=== PATIENT | female | born 1930 | race Caucasian/White ===

== ENCOUNTER 2017-05-09 12:11 | Observation (INO) | payer MEDICARE ==
[~2017-05-09] VITALS: Ht 152.4 cm; Wt 61.5 kg
[2017-05-09] MEDS ORDERED: VIIBRYD20 MG PO (12:37)
[2017-05-09] MEDS ORDERED: ARICEPT10 MG PO (12:37)
[2017-05-09] MEDS ORDERED: SYNTHROID0.112 MG/T PO (12:38)
[2017-05-09] MEDS ORDERED: B COMPLEX & B121 TAB PO (12:38)
[2017-05-09] MEDS ORDERED: CALCIUM 600 PLU1 TAB PO (12:39)
[2017-05-09] MEDS ORDERED: FOSAMAX 70MG TA70 MG PO (12:39)
[2017-05-09] MEDS ORDERED: NEURONTIN300 MG/CAP PO (12:40)
[2017-05-09 13:20] LABS: BASO # 0.1 (0.0-0.2); BASO % 0.7 % (0.0-2.0); EOS # 0.1 (0.0-0.7); EOS % 0.9 % (0-4.0); GRAN # 4.1 (1.4-6.5); GRAN % 59.3 % (42.2-75.2); HEMOGLOBIN 12.3 g/dl (12.5-16.0); LYMPH # 2.2 (1.2-3.4); LYMPH % 30.8 % (20.0-51.0); MEAN CELL VOLUME 90 fl (80.0-100.0); MEAN CORPUSCULAR HEMOGLOBIN 29 pg (27.0-31.0); MEAN CORPUSCULAR HGB CONC 32 g/dl (33.0-37.0); MEAN PLATELET VOLUME 11.7 fl (7.4-10.4); MONO # 0.6 (0.1-0.6); PLATELET COUNT 234 K/mm3 (130-400); RED BLOOD COUNT 4.21 M/mm3 (4.10-5.30); REDCELL DISTRIBUTION WIDTH-CV 13.6 % (11.5-14.5)
[2017-05-09 13:24] LABS: PROTHROMBIN TIME 10.7 SECONDS (9.7-12.8)
[2017-05-09 13:27] LABS: ADJUSTED CALCIUM 9.8 mg/dL (8.4-10.2); ALANINE AMINOTRANSFERASE 18 U/L (9-52); ALBUMIN 4.3 gm/dL (3.5-5.0); ALKALINE PHOSPHATASE 64 U/L (50-136); ANION GAP 10 mmol/L (7-16); BILIRUBIN,TOTAL 0.8 mg/dL (0.0-1.0); BLOOD UREA NITROGEN 17 mg/dL (7-17); CARBON DIOXIDE 23 mmol/L (22-30); CHLORIDE 107 mmol/L (98-107); CREATININE, serum 0.91 mg/dL (0.52-1.25); GLUCOSE 97 mg/dL (74-106); POTASSIUM 4.5 mmol/L (3.4-5.0); SODIUM 140 mmol/L (137-145)
[2017-05-09 13:36] LABS: B-TYPE NATRIURETIC PEPTIDE 237 pg/mL (0-450)
[2017-05-09 13:47] LABS: TROPONIN-I < 0.012 ng/mL (0.000-0.034)
[2017-05-09 13:53] LABS: PH 6 (5-8); SQUAMOUS EPITHELIAL 0-2 /hpf; URINE APPEARANCE Clear; URINE BACTERIA None Seen /hpf; URINE BILIRUBIN Negative (NEGATIVE); URINE BLOOD Negative (NEGATIVE); URINE COLOR Yellow; URINE GLUCOSE Negative (NEGATIVE); URINE KETONE Negative (NEGATIVE); URINE RBC 0-2 /hpf; URINE UROBILINOGEN Negative (NEGATIVE); URINE WBC 0-2 /hpf
[2017-05-09 16:35] VITALS: BP 150/74; PULSE 58; TEMP 98.3
[2017-05-09 17:17] VITALS: BP 147/74; PULSE 56
[2017-05-09 17:19] VITALS: BP 151/74; PULSE 64
[2017-05-09 17:20] VITALS: BP 114/67; PULSE 100
[2017-05-09 20:12] VITALS: BP 137/67; PULSE 57; TEMP 98.7
[2017-05-10 01:00] VITALS: BP 123/75; PULSE 81; TEMP 97.8
[2017-05-10 04:54] VITALS: BP 118/76; PULSE 80
[2017-05-10 07:45] LABS: BASO % 0.7 % (0.0-2.0); EOS # 0.1 (0.0-0.7); EOS % 1.5 % (0-4.0); GRAN % 55.9 % (42.2-75.2); LYMPH # 1.8 (1.2-3.4); LYMPH % 32.8 % (20.0-51.0); MEAN CELL VOLUME 91 fl (80.0-100.0); MEAN CORPUSCULAR HGB CONC 32 g/dl (33.0-37.0); MEAN PLATELET VOLUME 11.7 fl (7.4-10.4); MONO # 0.5 (0.1-0.6); MONO % 8.7 % (1.7-9.3); PLATELET COUNT 212 K/mm3 (130-400); RED BLOOD COUNT 3.86 M/mm3 (4.10-5.30); REDCELL DISTRIBUTION WIDTH-CV 13.4 % (11.5-14.5); WHITE BLOOD COUNT 5.4 K/mm3 (4.8-10.8)
[2017-05-10 07:52] LABS: HEMOGLOBIN 11.3 g/dl (12.5-16.0); MEAN CORPUSCULAR HEMOGLOBIN 29 pg (27.0-31.0)
[2017-05-10 07:54] LABS: CREATININE, serum 0.82 mg/dL (0.52-1.25); POTASSIUM 4.1 mmol/L (3.4-5.0)
[2017-05-10 08:35] VITALS: BP 154/75; PULSE 80; TEMP 98.2
[2017-05-10 11:37] VITALS: BP 152/69; PULSE 64; TEMP 98.6
[2017-05-10 12:55] VITALS: BP 147/65; PULSE 67; TEMP 97
== END 2017-05-10 14:43 | disposition home or self-care (01) ==
LOC: COL.ER 12:11 → PEDS 14:02 → MEDICAL 15:09
PROVIDERS: Emergency Medicine; Physician Assistant
DX: I95.1 Orthostatic hypotension (principal); E03.9 Hypothyroidism, unspecified; F03.90 Unspecified dementia, unspecified severity, without behavioral disturbance, psychotic disturbance, mood disturbance, and anxiety; F32.9 Major depressive disorder, single episode, unspecified; I08.3 Combined rheumatic disorders of mitral, aortic and tricuspid valves; Z87.891 Personal history of nicotine dependence
CPT/HCPCS: G0378; G8978-GP; G8979-GP; G8987-GO; G8988-GO; J1650; J7030

== ENCOUNTER 2019-07-23 12:16 | Outpatient (CLI) | payer MEDICARE ==
[~2019-07-23] VITALS: Ht 152.4 cm; Wt 57.8 kg
[~2019-07-23 12:16] MED LIST: ARICEPT 5MG PO; B COMPLEX & B121 TAB PO; CALCIUM 600 PLU1 TAB PO; FOSAMAX 70MG TA70 MG PO; NEURONTIN300 MG/CAP PO; SYNTHROID0.112 MG/T PO; VIIBRYD20 MG PO
[2019-07-23 12:41] VITALS: BP 123/76; PULSE 79; TEMP 98
--- NOTE | 2019-07-23 13:25 | NUR ---
Pt ate pudding upon arrival with assistance and is eating lunch now with daughter's assistance.
[2019-07-23 13:50] VITALS: BP 108/76; PULSE 88
[2019-07-23 15:22] VITALS: BP 112/71; PULSE 71
[2019-07-23] MEDS ORDERED: CIPRO 250MG TA250 MG PO (20:49)
[2019-07-24] MEDS ORDERED: ASPIRIN E.C. 8181 MG PO (00:30)
== END 2019-07-23 16:42 | disposition home or self-care (01) ==
LOC: EUO 12:16
DX: E86.0 Dehydration (principal)
CPT/HCPCS: J7030

== ENCOUNTER 2019-07-23 20:04 | Inpatient (IN) | payer MEDICARE ==
[~2019-07-23] VITALS: Ht 162.6 cm; Wt 54.3 kg
[2019-07-23] MEDS ORDERED: CIPRO 250MG TA250 MG PO (20:49)
[2019-07-23 20:53] LABS: BASO % 0.3 % (0.0-2.0); EOS % 0.2 % (0-4.0); GRAN # 9.5 (1.4-6.5); GRAN % 84.8 % (42.2-75.2); HEMOGLOBIN 10.7 g/dl (12.5-16.0); LYMPH # 0.8 (1.2-3.4); LYMPH % 7.3 % (20.0-51.0); MEAN CELL VOLUME 90 fl (80.0-100.0); MEAN CORPUSCULAR HEMOGLOBIN 28 pg (27.0-31.0); MEAN CORPUSCULAR HGB CONC 32 g/dl (33.0-37.0); MONO # 0.8 (0.1-0.6); PLATELET COUNT 230 K/mm3 (130-400); RED BLOOD COUNT 3.77 M/mm3 (4.10-5.30); REDCELL DISTRIBUTION WIDTH-CV 14.5 % (11.5-14.5)
[2019-07-23 21:02] LABS: ALBUMIN 3.6 gm/dL (3.5-5.0); BILIRUBIN,TOTAL 0.7 mg/dL (0.0-1.0); CALCIUM 8.7 mg/dL (8.4-10.2); CREATININE, serum 0.91 (0.52-1.25); POTASSIUM 3.8 mmol/L (3.4-5.0); TOTAL PROTEIN 6.9 gm/dL (6.4-8.2)
[2019-07-23 21:07] LABS: PARTIAL THROMBOPLASTIN TIME 27.1 SECONDS (26.0-37.0)
[2019-07-23 21:10] LABS: INR 1.1 (0.8-3.0); PROTHROMBIN TIME 12.5 SECONDS (9.7-12.8)
[2019-07-23 21:19] LABS: TROPONIN-I 0.182 ng/mL (0.000-0.035)
[2019-07-24] VITALS (174 sets, daily range): BP systolic 70–111; BP diastolic 43–78; PULSE 87–109; TEMP 97.8–98.5; O2SAT 81–99
[2019-07-24] MEDS ORDERED: ASPIRIN E.C. 8181 MG PO (00:30)
--- NOTE | 2019-07-24 01:14 | NUR ---
Patient arrived to medical floor from ER at approximately 2300. Daughter and granddaughter with patient. Assessment complete. Family assisted with patient's history. Paperwork from [place] received, and updated medication list. Patient resting in bed with eyes closed. Call light is within reach. High fall risk precautions in place.
--- NOTE | 2019-07-24 04:24 | NUR ---
At approximately 0335, telemetry called and stated that patient's HR was in the 160s. Checked on PT. Called RT for stat EKG. Alert and oriented to self only. Denies pain and discomfort. Patient remained in what looked like SVT for approximately 3 minutes. EKG results: sinus tach, HR 101. Notified Malena. Troponin came back elevated 0.470. Order for STAT CT chest. Taken down to radiology at 0400. Patient with increased confusion and agitation since being woken up. Aggitated with staff. Back to room at 0420. High fall risk precautions in place. Awaiting for STAT labs to be drawn, called and notified lab. Patient denies having to urinate at this time. Call light is within reach.
[2019-07-24 05:50] LABS: COLLECTION METHOD CATHETER
[2019-07-24 05:57] LABS: MUCOUS Present /lpf; PH 5 (5-8); URINE APPEARANCE Hazy; URINE BACTERIA Rare /hpf; URINE BILIRUBIN Negative (NEGATIVE); URINE BLOOD 1+ (NEGATIVE); URINE COLOR Yellow; URINE GLUCOSE Negative (NEGATIVE); URINE KETONE Negative (NEGATIVE); URINE LEUKOCYTE ESTERASE 3+ (NEGATIVE); URINE NITRATE Negative (NEGATIVE); URINE PROTEIN(semi-quant) Negative (NEGATIVE); URINE UROBILINOGEN Negative (NEGATIVE); URINE WBC >50 /hpf
[2019-07-24 05:58] LABS: HEMOGLOBIN 10.7 g/dl (12.5-16.0); MEAN CELL VOLUME 90 fl (80.0-100.0); MEAN CORPUSCULAR HEMOGLOBIN 28 pg (27.0-31.0); MEAN CORPUSCULAR HGB CONC 32 g/dl (33.0-37.0); MEAN PLATELET VOLUME 11.1 fl (7.4-10.4); PLATELET COUNT 249 K/mm3 (130-400); RED BLOOD COUNT 3.78 M/mm3 (4.10-5.30); REDCELL DISTRIBUTION WIDTH-CV 14.6 % (11.5-14.5)
[2019-07-24 06:16] LABS: C-REACTIVE PROTEIN 1.6 mg/dL (0.0-0.9); CALCIUM 8.9 mg/dL (8.4-10.2); CREATININE, serum 1.01 (0.52-1.25); PHOSPHOROUS 3.5 mg/dL (2.5-4.5); POTASSIUM 3.9 mmol/L (3.4-5.0)
[2019-07-24 06:43] LABS: THYROID STIMULATING HORMONE 8.51 uIU/mL (0.465-4.680)
--- NOTE | 2019-07-24 07:16 | NUR ---
Patient given IV ABXs after blood cultures were drawn. Patient is currently pleasant and cooperative. Voices no questions, needs, or concerns. High fall risk precautions remain in place. Attempted to call pulmonology consult, no answer. Called cardiology consult to Dr. Prado. Voices no questions, needs, or concerns at this time. Call light is within reach. Report given to day shift nurse.
--- NOTE | 2019-07-24 09:42 | NUR ---
Inclined Railway Operator attended clinical rounds with team. Patient is currently on oxygen although she does use oxygen at home. SW to continue to follow.
--- NOTE | 2019-07-24 10:15 | NUR ---
Initial visit; Family thanked Electric Motor Repairing Supervisor for looking in on Deandre who is experiencing some dementia. Electric Motor Repairing Supervisor visited with Deandre and offered prayer and God's blessings.
--- NOTE | 2019-07-24 11:13 | NUR ---
1055: INTERVENTIONAL RADIOLOGY READY FOR THORACENTISIS. pATIENT C/O OF INCREASED DIZZINESS AND BEING VERY LIGHTHEADED. PALE. COMPLAINING OF BEING HOT. SKIN WARM AND DRY. NO C/O CHEST PAIN OR PRESSURE. INCREASED WORK OF BREATHING WITH USE OF ACCESSORY MUSCLES TO BREATHE. RESPIRATORY RATE 24. fvs OBTAINED. SEE FLOW SHEET FOR HYPOTENSION. DR. PLUNKETT NOTIFIED. ORDERS RECEIVED FOR 500ML FLUID BOLUS OVER ONE HOUR NOW. FAMILY AND PATIENT UPDATE ON PLAN OF CARE. NO QUESTIONS OR CONCERNS. AGREE WITH PLAN OF CARE AT THIS TIME.
--- NOTE | 2019-07-24 12:00 | NUR ---
500ML NS BOLUS COMPLETE AT THIS TIME. SEE FLOWSHEET FOR DOCUMENTED BPS. NO C/O DIZZINESS OR BEING LIGHT HEADED. DR. PLUNKETT AWARE OF BPS. PATIENT TO TRANSFER TO ICU WHEN ROOM AVAILABLE. FAMILY AWARE AND AGRRES WITH PLAN OF CARE. ORDER RECEIVED TO PLACE BANEGAS CATHETER D/T HYPOTENSION AND PATIENT UNABLE TO VOID ON BED COLE. 16FR BANEGAS PLACED PER HOSPITAL POLICY IN STERILE FASHION. PATIENT TOLERATED PROCEDURE WELL.
--- NOTE | 2019-07-24 15:40 | NUR ---
Dr. Prado rounds on patient at this time. No new orders recieved.
--- NOTE | 2019-07-24 15:44 | NUR ---
Patient arrives to ICU 5 via bed and is tranferred to ICU bed and monitors. Vitals and assessment as charted. Care assumed at this time.
--- NOTE | 2019-07-24 16:21 | NUR ---
1530: PATIENT TRANSFERRED TO ICU ROOM 5. PATIENT REPORT GIVEN TO CARLITO KILGORE. FAMILY I ATTENDANCE AT TIME OF TRANSFER. ALL PERSONAL BELONGINGS SENT WITH FAMILY AND PATIENT.
--- NOTE | 2019-07-24 16:58 | NUR ---
Animal Rides Manager met with patient and patient's daughter, Brenda (ph#[phone]) to discuss discharge planning. Patient lives at [facility] and has been there for about 5 years. Patient has dementia and had difficulty answering questions. Brenda provided intake information to SW. Patient sees Dr. Lopez for primary care and has her medications set up and administered by [facility]. Patient has a walker but refuses to use it. Patient does not have Advance Directives in EMR. Brenda to bring copy tomorrow. SW to continue to follow.
--- NOTE | 2019-07-24 18:05 | NUR ---
Dr. Prado called again to discuss patient self limiting episodes of SVT. provides TORB for digoxin as entered.
[2019-07-25] VITALS (778 sets, daily range): BP systolic 70–122; BP diastolic 29–86; PULSE 65–95; TEMP 97.8–98.7; O2SAT 84–100
--- NOTE | 2019-07-25 01:21 | NUR ---
LEVOPHED STARTED ORDERED. PT'S BP AT 80/61 MMHG.
--- NOTE | 2019-07-25 04:53 | NUR ---
PT GETTING AGITATED AND COMBATIVE WITH STAFF WHEN TRYING TO GIVE MEDICATIONS AND X-RAY. PT YELLING "GET OUT! I DON'T WANT IT!" AND ALSO TRYING TO PULL LINES. WILL HOLD XRAY AND MORNING MEDS FOR NOW AND RE-TRY AGAIN ONCE PT IS CALM AND COOPERATIVE.
--- NOTE | 2019-07-25 05:11 | NUR ---
PT ONLY HAD 200 ML OF URINE FOR THIS SHIFT, E CARE NOTIDIED AND UPDATED WELL REGARDING PT'S BEHAVIOR. AWAITING FOR ORDERS/CALL BACK.
--- NOTE | 2019-07-25 05:26 | NUR ---
PT REFUSED EKG. SOON RT CAME IN ROOM, PT YELLED "OUT!"
--- NOTE | 2019-07-25 07:09 | NUR ---
PT IS REFUSING ALL TREATMENT THEREFORE NO VBG OR EKG HAS BEEN DONE. DAY SHIFT RT HAS BEEN NOTIFIED.
--- NOTE | 2019-07-25 07:20 | NUR ---
Unable to complete PICC line assessment - pt refusing.
--- NOTE | 2019-07-25 13:24 | NUR ---
Truck Despatcher attended clinical rounds with the team. SW to continue to follow to ensure safe discharge.
--- NOTE | 2019-07-25 15:50 | NUR ---
MD Whitley present in room discussing Thoracentesis - 2 daughters, 1 son and 1 granddaughter present - all in agreement - consent given and signed. 1600 TimeOut performed by myself, MD Whitley and Mralena Garcia present, all in agreement. Automated VS set to q5min. Post Procedure: pt tolerated procedure well, bandaid placed on puncuture site (right side). HOB to 30degrees, pt resting comfortably on left side, call light in reach, family back in room. No concerns at this time, VS remain stable
[2019-07-25 16:45] LABS: PLEURAL FLUID RBC 1000 /mm3 (0-0); PLEURAL FLUID WBC 729 /mm3
--- NOTE | 2019-07-25 17:00 | NUR ---
MD Marisa notified elevated Critical Troponin - MD Johan called - unable to leave voice message
[2019-07-25 17:07] LABS: BASO % 0.4 % (0.0-2.0); EOS # 0.1 (0.0-0.7); EOS % 1.3 % (0-4.0); HEMOGLOBIN 10.7 g/dl (12.5-16.0); LYMPH # 1.7 (1.2-3.4); LYMPH % 17.5 % (20.0-51.0); MEAN CELL VOLUME 89 fl (80.0-100.0); MEAN CORPUSCULAR HEMOGLOBIN 28 pg (27.0-31.0); MEAN CORPUSCULAR HGB CONC 32 g/dl (33.0-37.0); MEAN PLATELET VOLUME 10.9 fl (7.4-10.4); MONO # 0.9 (0.1-0.6); MONO % 9.4 % (1.7-9.3); PLATELET COUNT 227 K/mm3 (130-400); RED BLOOD COUNT 3.77 M/mm3 (4.10-5.30); REDCELL DISTRIBUTION WIDTH-CV 14.3 % (11.5-14.5)
[2019-07-25 17:09] LABS: HEMATOCRIT 33.6 % (37.0-47.0)
[2019-07-25 17:17] LABS: CREATININE, serum 0.87 (0.52-1.25); POTASSIUM 3.6 mmol/L (3.4-5.0)
[2019-07-25 17:18] LABS: CHOLESTEROL RISK RATIO 7.1
[2019-07-25 17:31] LABS: TROPONIN-I 0.532 ng/mL (0.000-0.035)
[2019-07-25 18:02] LABS: GLUCOSE,PLEURAL FLUID 118 mg/dL; TOTAL PROTEIN,PLEURAL FLUID 2.3 gm/dL
[2019-07-25 18:30] LABS: PLEURAL FLUID APPEARANCE CLOUDY; PLEURAL FLUID COLOR YELLOW
--- NOTE | 2019-07-25 19:07 | NUR ---
MD Johan called to notify of Troponin Level, no answer and unable to leave voice message
[2019-07-26] VITALS (883 sets, daily range): BP systolic 76–106; BP diastolic 54–75; PULSE 70–83; TEMP 98.4–98.7; O2SAT 79–100
--- NOTE | 2019-07-26 05:05 | NUR ---
PT ONLY HAD 150 OF URINE OUT, E CARE NOTIFIED. AWAITING FOR ORDERS/CALL BACK.
--- NOTE | 2019-07-26 05:35 | NUR ---
PT REFUSING EKG. PT VERBALLY AGGRESIVE AGAIN JUST LIKE YESTERDAY IN THE MORNING.
--- NOTE | 2019-07-26 07:30 | NUR ---
Report received from Claire KILGORE and care resumed.
[2019-07-26 08:54] LABS: BASO # 0.1 (0.0-0.2); BASO % 0.5 % (0.0-2.0); EOS # 0.2 (0.0-0.7); EOS % 1.5 % (0-4.0); GRAN # 8.2 (1.4-6.5); GRAN % 77.9 % (42.2-75.2); HEMOGLOBIN 10.7 g/dl (12.5-16.0); LYMPH # 1.3 (1.2-3.4); LYMPH % 12.4 % (20.0-51.0); MEAN CELL VOLUME 90 fl (80.0-100.0); MEAN CORPUSCULAR HEMOGLOBIN 28 pg (27.0-31.0); MEAN CORPUSCULAR HGB CONC 31 g/dl (33.0-37.0); MEAN PLATELET VOLUME 10.8 fl (7.4-10.4); MONO # 0.8 (0.1-0.6); MONO % 7.3 % (1.7-9.3); PLATELET COUNT 232 K/mm3 (130-400); RED BLOOD COUNT 3.82 M/mm3 (4.10-5.30)
[2019-07-26 09:02] LABS: HEMATOCRIT 34.2 % (37.0-47.0)
[2019-07-26 09:18] LABS: ALBUMIN 3.4 gm/dL (3.5-5.0); BILIRUBIN,TOTAL 0.7 mg/dL (0.0-1.0); CALCIUM 8.9 mg/dL (8.4-10.2); CREATININE, serum 0.77 (0.52-1.25); POTASSIUM 4.1 mmol/L (3.4-5.0); TOTAL PROTEIN 6.8 gm/dL (6.4-8.2)
--- NOTE | 2019-07-26 09:54 | NUR ---
Dr Barrett in to see pt at this time.
--- NOTE | 2019-07-26 10:21 | NUR ---
EKG RESULTS REPORTED AND SHOWN TO DR BEATTY, CARDIOLOGY OPERATIONS RESEARCH ENGINEER
--- NOTE | 2019-07-26 13:09 | NUR ---
Dr Cunningham in to see pt at this time.
--- NOTE | 2019-07-26 19:04 | NUR ---
Report given to Bandar KILGORE and care resumed.
[2019-07-27] VITALS (1050 sets, daily range): BP systolic 83–103; BP diastolic 61–74; PULSE 65–88; TEMP 97.8–98.5; O2SAT 73–100
--- NOTE | 2019-07-27 07:35 | NUR ---
Report received from Bandar KILGORE and care resumed.
[2019-07-27 08:21] LABS: BASO # 0.1 (0.0-0.2); BASO % 0.4 % (0.0-2.0); EOS # 0.1 (0.0-0.7); EOS % 0.7 % (0-4.0); GRAN # 9.9 (1.4-6.5); HEMOGLOBIN 11.8 g/dl (12.5-16.0); LYMPH # 1.1 (1.2-3.4); MEAN CELL VOLUME 88 fl (80.0-100.0); MEAN CORPUSCULAR HEMOGLOBIN 28 pg (27.0-31.0); MEAN CORPUSCULAR HGB CONC 32 g/dl (33.0-37.0); MEAN PLATELET VOLUME 10.8 fl (7.4-10.4); MONO # 0.9 (0.1-0.6); MONO % 7.5 % (1.7-9.3); PLATELET COUNT 259 K/mm3 (130-400); RED BLOOD COUNT 4.15 M/mm3 (4.10-5.30); REDCELL DISTRIBUTION WIDTH-CV 13.9 % (11.5-14.5)
[2019-07-27 08:26] LABS: HEMATOCRIT 36.7 % (37.0-47.0)
[2019-07-27 08:27] LABS: ALBUMIN 3.6 gm/dL (3.5-5.0); BILIRUBIN,TOTAL 0.7 mg/dL (0.0-1.0); CREATININE, serum 0.8 (0.52-1.25); TOTAL PROTEIN 7.1 gm/dL (6.4-8.2)
--- NOTE | 2019-07-27 10:16 | NUR ---
Dr Garsia in to see pt and Dr Mariano. Pt heart rate elevated and EKG obtained. Showing a fib. Dr Mariano aware and new orders received. Will continue to follow.
--- NOTE | 2019-07-27 13:30 | NUR ---
Dr Cunningham in to see pt at this time.
--- NOTE | 2019-07-27 20:00 | NUR ---
PT assessed and respositioned, reoriented to location and date. PT states frustration with forgetting things and for being "so much trouble to you gals." Reminded of need for catheter as PT has been forgetting and pulling on it occasionally, offered mittens to keep her from pulling on it and patient agreed to them. Will continue to reorient and monitor.
[2019-07-28] VITALS (342 sets, daily range): BP systolic 86–96; BP diastolic 23–73; PULSE 66–87; TEMP 97.6–98.7; O2SAT 66–100
[2019-07-28 06:09] LABS: BASO % 0.3 % (0.0-2.0); EOS # 0.2 (0.0-0.7); EOS % 1.4 % (0-4.0); GRAN # 8.3 (1.4-6.5); GRAN % 74.4 % (42.2-75.2); HEMOGLOBIN 11.9 g/dl (12.5-16.0); LYMPH # 1.5 (1.2-3.4); LYMPH % 13.8 % (20.0-51.0); MEAN CELL VOLUME 87 fl (80.0-100.0); MEAN CORPUSCULAR HEMOGLOBIN 28 pg (27.0-31.0); MEAN CORPUSCULAR HGB CONC 33 g/dl (33.0-37.0); MONO # 1.1 (0.1-0.6); MONO % 9.6 % (1.7-9.3); PLATELET COUNT 278 K/mm3 (130-400); RED BLOOD COUNT 4.19 M/mm3 (4.10-5.30); REDCELL DISTRIBUTION WIDTH-CV 13.8 % (11.5-14.5)
[2019-07-28 06:29] LABS: CALCIUM 9.2 mg/dL (8.4-10.2); CREATININE, serum 0.85 (0.52-1.25); POTASSIUM 3.6 mmol/L (3.4-5.0)
[2019-07-28 06:42] LABS: HEMATOCRIT 36.6 % (37.0-47.0)
--- NOTE | 2019-07-28 07:15 | NUR ---
Report given to MAGUI Holman.
--- NOTE | 2019-07-28 09:00 | NUR ---
PT HAS BECOME EXTREMELY AGITATED AND THINKS SHE IS AT THE DENTIST OFFICE AND IS TRYING TO CLIMB OUT OF BED. PT PULLING AT PICC LINE AND BANEGAS. TRIED TO REORIENT PAITENT BUT SHE IS BECOMING INCREASINGLY AGITATED. DR GIBBONS CALLED TO ASK ABOUT MEDICATION FOR AGITATION.
--- NOTE | 2019-07-28 09:00 | NUR ---
ATTEMPTED TO WEAN LEVO GTT DOWN. PT'S BP DECREASED TO SBP IN 70S. LEVO RESUMED AT 0.10MCG/KG/MIN.
--- NOTE | 2019-07-28 14:15 | NUR ---
DR GIBBONS DISCUSSED PLAN OF CARE WITH FAMILY. FAMILY HAS COME TO CONSENSUS TO MAKE PATIENT COMFORT MEASURES ONLY, INITIATING AT THIS TIME. LEVOPHED AND AMIO DISCONTINUED.
--- NOTE | 2019-07-28 14:38 | NUR ---
BP AFTER DISCONTINUING LEVOPHED IS NOW 68/45, HR 69, RESP 20
--- NOTE | 2019-07-28 15:35 | NUR ---
PT RESTING COMFORTABLY WITH FAMILY AT BEDSIDE. CURRENT VS: BP 79/55, PULSE 62,RESP 21, O2 SAT 90% ROOM AIR.
--- NOTE | 2019-07-28 16:17 | NUR ---
PT CONTINUES TO REST COMFORTABLY. BP CURRENTLY 69/50
--- NOTE | 2019-07-28 16:39 | NUR ---
BP 67/48
--- NOTE | 2019-07-28 17:54 | NUR ---
PT STILL RESTING COMFORTABLY. CURRENT VS: PULSE 61, BP 74/52, RESP 16, 97% ROOM AIR.
--- NOTE | 2019-07-28 18:28 | NUR ---
FAMILY DENIES ANY NEEDS AT THIS TIME. PATIENT RESTING COMFORTABLY. BP 78/57
--- NOTE | 2019-07-28 19:15 | NUR ---
Discussed POC for the evening with family and MAGUI Holman. Family aware that there is pain and anxiety medication ordered if it is needed for the patient. Notified family that we may move the patient to the medical floor this evening if an ICU bed is needed and the patient prognosis is stable/will hold on throughout the evening. PT is resting in bed, sleeping. BP 70/56, HR 81, RR 22. Will continue to assess for pain in the patient and the familiy's needs.
--- NOTE | 2019-07-29 00:10 | NUR ---
PT asleep in bed, family member asleep in recliner. BP 79/56, HR 66, RR 20.
--- NOTE | 2019-07-29 08:01 | NUR ---
PT SITTING UP IN BED, ALERT, AND CONVERSIVE. PT CONTINUES TO BE CONFUSED D/T ADVANCED DEMENTIA. PT ABLE TO SPEAK WITH FAMILY AT BEDSIDE. CURRENT VS: BP 71/58, PULSE 82, RESP 17
--- NOTE | 2019-07-29 08:57 | NUR ---
REPORT CALLED TO JEFFERSON KILGORE ON MEDICAL FLOOR.
--- NOTE | 2019-07-29 09:16 | NUR ---
PT TRANSFERRED TO MEDICAL FLOOR BED AND TRANSPORTED BY CENTRAL STERILE SUPPLY TECHNICIAN TO MEDICAL ROOM 308. PT'S DAUGHTER TRANSFERRED BELONGINGS TO MEDICAL ROOM 308.
--- NOTE | 2019-07-29 10:00 | NUR ---
PT ADMITTED TO FLOOR AT THIS TIME. RESTING QUITELY WITH EYES CLOSED.
--- NOTE | 2019-07-29 15:45 | NUR ---
PICC intact right upper arm. With sterile technique right upper arm PICC dressing change done with insertion site cleansed with ChloraPrep 1, chlorhexidine impregnated disc applied, skin prep, StatLock, and Tegaderm applied. No signs or symptoms of IV complications noted. No concerns voiced. Arm wrapped with Renny to protect catheter.
--- NOTE | 2019-07-29 16:22 | NUR ---
The patient is on comfort measures. PAO met with the patient's daughter's, Tiffany, to discuss hospice options. The patient's daughters would prefer to keep the patient here until she passes. They would also like to have the PICC removed. PAO notified the patient's RN and the hospitalist of this. PAO provided support and ordered a comfort care basket. SW to continue to follow.
--- NOTE | 2019-07-29 17:06 | NUR ---
PT HAS SEVERAL FAMILY MEMBERS IN ROOM VISITING. INQURING ABOUT PT PROGNOSIS AND LIFE EXPECTANCY. THIS NURSE TALKED TO FAMILY ABOUT HOW THERES NO KNOWING WHEN SHE COULD PASS AWAY THAT THERE IS NO STRAIGHT FORWARD ANSWER. FAMILY WENT ON DISCUSSING WHAT TO DO PAST THE HOSPITAL IF PT DOESNT PASS AWAY WHILE SHE IS HERE.
--- NOTE | 2019-07-29 20:44 | NUR ---
Resting in bed with family at bedside. Patient alert and orientated. Assessment complete. Base bilaterally dimished with left lower lobe crackles. Upper lobes clear. Heart murmur heard. Bowels active x4. Pulse strong throughout. No edema noted. PICC to right upper. Patient denies pain. States " I am comfortable just tired." Family and patient denie needs. Call light in reach.
--- NOTE | 2019-07-29 23:59 | NUR ---
Resting in bed comfortable. Educated family to call if patient becomes restless or has discomfort. Denies needs at this time. Call light in reach.
--- NOTE | 2019-07-30 04:41 | NUR ---
Resting in bed with family at bedside. Patient appears comfortable, currently sleeping. Call light in reach.
--- NOTE | 2019-07-30 06:04 | NUR ---
Patient had uneventful night. Rested comfortably. Family remained at bedside throughout night. Denies needs this AM. Call light in reach.
--- NOTE | 2019-07-30 07:07 | NUR ---
Report given to MAGUI Roman
--- NOTE | 2019-07-30 11:36 | NUR ---
Hospitalist informed SW that the patient and patient's family were agreeable to transitioning to the [facility]. PAO faxed referral and contacted [facility], left message with their answering service. visitor services technician will continue to follow.
--- NOTE | 2019-07-30 19:10 | NUR ---
Patient reports nausea. Obtained order from Dr. Cunningham for zofran 4mg IV Q6H PRN.
--- NOTE | 2019-07-30 19:17 | NUR ---
PT HAD UNEVENTFUL DAY. HAS BEEN SITTING WITH FAMILY MOST OF DAY VISITING. HAS HAD C/O SOME DIZZINESS THIS EVENING. C/O BEING HUNGERY. GAVE PT A ENSURE WITH SOME ICECREAM INTO A MILK SHAKE, VOICED THAT IT WAS VERY GOOD AND WAS DRANK MOST IF IT THIS EVENING. FAMILY REPORTED THAT THEY WILL BE CHANTAL THIS EVENING. THIS NURSE TURNED ON BED ALARM.
--- NOTE | 2019-07-30 19:40 | NUR ---
Resting in bed. Reported dizziness/n[place]asea. Provided with PRN zofran to PICC in right uper arm. PICC flushed without complications. Assessment complete. Bases bilaterally crackles otherwise clear. Heart murmur heard on auscultation. Pulses strong throughout. No edema noted at this time. Patient appears pale to color. Walker to dependent drainage without kinks or loops. Urine yellow and cloudy. Denies pain at this time. Denies other needs. Call light in reach.
--- NOTE | 2019-07-30 21:16 | NUR ---
Resting comfortably in bed at this time.
--- NOTE | 2019-07-30 21:40 | NUR ---
Resting in bed comfortably at this time
--- NOTE | 2019-07-30 22:08 | NUR ---
Resting in bed. Patient reports confusion. States does not know place or what is happening. Reorientated patient. Patient states she would like to rest and to please turn lights off. Denies other needs. Will monitor. Bed alarm in place.
--- NOTE | 2019-07-31 00:19 | NUR ---
Resting in bed comfortably at this time
--- NOTE | 2019-07-31 03:32 | NUR ---
Resting in bed comfortably. Denies needs. Call light in reach.
--- NOTE | 2019-07-31 06:26 | NUR ---
Patient had uneventful night. Resting in bed this AM. Call light in reach.
--- NOTE | 2019-07-31 07:30 | NUR ---
Report given to MAGUI Barron
--- NOTE | 2019-07-31 09:38 | NUR ---
Олег, at [facility], reports that they would not be able to accept the patient today; but tentatively tomorrow. Олег requested the patient's med list, DNR order, and DPOA-HC. PAO faxed that information to Олег. PAO updated the clinical team and will update the patient's family. SW to continue to follow.
--- NOTE | 2019-07-31 10:59 | NUR ---
Олег, at [facility], reports that they are awaiting to hear back from the patient's PCP of whether he will follow. Олег reports that once they hear back from him, they may tentatively be able to accept the patient tomorrow around 1330. SW to update the family and will continue to follow.
[2019-07-31] MEDS ORDERED: ROXANOL 20MG20 MG/ML SL (14:40)
[2019-07-31] MEDS ORDERED: ATIVAN 1MG T1 MG/TAB PO (14:41)
[2019-07-31] MEDS ORDERED: ZOFRAN ODT4 MG PO (14:43)
--- NOTE | 2019-07-31 14:45 | NUR ---
Олег, at [facility], contacted PAO back to inform that they would actually be able to accept the patient today. PAO notified the clinical team and informed the patient's daughter, Brenda. Brenda is in agreeance with the patient discharging today. PAO presented and explained the IM form to Brenda. Brenda verbalized understanding, signed, and she was provided a copy. The patient is to discharge today, 07/31, to the [facility]. Transportation was arranged for 1530, via [facility]. PAO informed the patient's daughter (Brenda), her RN, and [facility]. They were all in agreeance to the time. PAO to fax the patient's scripts to the families preferred pharmacy, [facility]. No additional needs at this time.
--- NOTE | 2019-07-31 16:57 | NUR ---
1500: PICC LINE REMOVED. NO COMPLICATIONS. STERILE DRESSING APPLIED. 1555: PATIENT DC TO [facility] VIA EMS. DC PACKET SET WITH EMS. REPORT GIVEN TO LEIF KILGORE. ENCOURAGED TO CALL WITH ANY QUESTIONS OR CONCERNS.
== END 2019-07-31 15:55 | disposition hospice, home (50) | DRG 280 ==
LOC: COL.ER 20:04 → MEDICAL 21:57 → ICU 21:57 → MEDICAL 23:59 → ICU 07-24 15:27 → MEDICAL 07-29 09:26
PROVIDERS: Family Medicine; Internal Medicine Pulmonary Disease; Nurse Practitioner Family; Physician Assistant; Student in an Organized Health Care Education/Training Program
PROC: 02HV33Z Insertion of Infusion Device into Superior Vena Cava, Percutaneous Approach (ICD-10-PCS; principal; 2019-07-23)
PROC: 0W993ZZ Drainage of Right Pleural Cavity, Percutaneous Approach (ICD-10-PCS; 2019-07-25)
DX: I50.43 Acute on chronic combined systolic (congestive) and diastolic (congestive) heart failure (principal); J96.01 Acute respiratory failure with hypoxia; I21.4 Non-ST elevation (NSTEMI) myocardial infarction; N39.0 Urinary tract infection, site not specified; I47.1 Supraventricular tachycardia; J91.8 Pleural effusion in other conditions classified elsewhere; R18.8 Other ascites; M48.54XA Collapsed vertebra, not elsewhere classified, thoracic region, initial encounter for fracture; J98.11 Atelectasis; E87.70 Fluid overload, unspecified; K44.9 Diaphragmatic hernia without obstruction or gangrene; F03.90 Unspecified dementia, unspecified severity, without behavioral disturbance, psychotic disturbance, mood disturbance, and anxiety; I27.20 Pulmonary hypertension, unspecified; E03.9 Hypothyroidism, unspecified; M81.0 Age-related osteoporosis without current pathological fracture; I08.3 Combined rheumatic disorders of mitral, aortic and tricuspid valves; F41.9 Anxiety disorder, unspecified; F32.9 Major depressive disorder, single episode, unspecified; Z66 Do not resuscitate; I48.91 Unspecified atrial fibrillation; R73.9 Hyperglycemia, unspecified; Z79.82 Long term (current) use of aspirin; Z87.891 Personal history of nicotine dependence; Z51.5 Encounter for palliative care; K76.9 Liver disease, unspecified
CPT/HCPCS: 99223-AI; 99231-AI; 99233-AI; 99238; 99239; A4216; C1751; J0282; J0696; J1630; J1940; J2405; J3480; J7040; J7060; Q9967